=== PATIENT | female | born 1995 | race Caucasian/White ===

== ENCOUNTER 2016-11-17 04:13 | Emergency (ER) | payer SELFPAY ==
[2016-11-17 04:19] VITALS: BP 119/76; PULSE 100; RESP 16; TEMP 97.7; O2SAT 95
[2016-11-17] MEDS ORDERED: SERO400T PO (04:31)
[2016-11-17] MEDS ORDERED: LORA-474 PO (04:31)
[2016-11-17] MEDS ORDERED: BUPR150CR PO (04:31)
--- NOTE | 2016-11-17 04:42 | PD ---
HPI Chief Complaint: Injury Time Seen by Provider: 04:30 Travel History International Travel<30 days: No Contact w/Intl Traveler<30days: No Traveled to known affect area: No History of Present Illness HPI Patient is a 21-year-old female presenting to emergency Department for evaluation of right wrist pain. There was no defining injury or trauma. Patient states pain is been ongoing for 1 week. She has not taken anything over -the-counter to alleviate the pain. She denies any weakness, numbness or tingling in her hand. She has full range of motion but states is sore when she moves. She rates her pain a 4 out of 10. PFSH Past Medical History Medical History: Denies Significant Hx ?: Not Past Surgical History Surgical History: No Previous Surgery Social History Alcohol Use: No Tobacco Use: No Substance Use: No Allergies-Medications (Allergen,Severity, Reaction): Coded Allergies: lactose (Verified Allergy, Unknown, 11/17/16) Reported Meds & Prescriptions Reported Meds & Active Scripts Active Reported Wellbutrin SR 12 HR (Bupropion HCl) 150 Mg Tab 150 Mg PO Q12HR Ativan (Lorazepam) 1 Mg Tab 1 Mg PO DAILY PRN Seroquel (Quetiapine Fumarate) 400 Mg Tab 400 Mg PO HS Review of Systems Except as stated in HPI: all other systems reviewed are Neg Musculoskeletal: Positive: Myalgias, Arthralgias Physical Exam Narrative GENERAL: Well-developed, well-nourished, alert female. Resting comfortably in no acute distress. SKIN: Warm and dry. HEAD: Normocephalic. EYES: No scleral icterus. No injection or drainage. NECK: Supple, trachea midline. No JVD or lymphadenopathy. CARDIOVASCULAR: Regular rate and rhythm without murmurs, gallops, or rubs. RESPIRATORY: Breath sounds equal bilaterally. No accessory muscle use. GASTROINTESTINAL: Abdomen soft, non-tender, nondistended. MUSCULOSKELETAL: No cyanosis, or edema. 5 out of 5 muscle strength in bilateral upper extremities. 2+ radial pulses bilaterally. Full range of motion in right wrist and hand. He is noted. Nontender to palpation. BACK: Nontender without obvious deformity. No CVA tenderness. Data Data Last Documented VS Vital Signs Date Time Temp Pulse Resp B/P (MAP) Pulse Ox O2 Delivery O2 Flow Rate FiO2 11/17/16 04:19 97.7 100 16 119/76 (90) 95 Room Air MDM Medical Decision Making Medical Screen Exam Complete: Yes Emergency Medical Condition: No Interpretation(s) Vital Signs Date Time Temp Pulse Resp B/P (MAP) Pulse Ox O2 Delivery O2 Flow Rate FiO2 11/17/16 04:19 97.7 100 16 119/76 (90) 95 Room Air Differential Diagnosis Sprain versus strain versus carpal tunnel syndrome versus other Narrative Course Patient presented for evaluation of right wrist pain that started over one week ago. There was no injury or trauma. There is no obvious deformities and patient is neurovascularly intact. Patient has not trialed any over-the- counter anti-inflammatory or acetaminophen. Furthermore she has not had any other conservative management such as heat or ice. At this time patient was advised to obtain [id number] ibuprofen or acetaminophen, use as directed. She was encouraged to alternate heat and ice the affected area and continue range of motion exercises. A medical screening exam was performed: At the time of evaluation the presenting medical condition was determined not to be of an emergent nature. The patient was given the option of receiving additional care, but declined. Patient was given options for additional community resources from which to obtain care. The Patient Has Been advised to seek medical attention for their presenting complaint. The patient has been advised to return to the ER at any time if an emergent condition develops. Diagnosis Primary Impression: Encounter for medical screening examination Condition: Norma Phillips Nov 17, 2016 04:42
== END 2016-11-17 05:52 | disposition left against medical advice (07) ==
LOC: NEPD 04:13
DX: M25.531 Pain in right wrist (principal)
CPT/HCPCS: 99281

== ENCOUNTER 2017-03-22 03:10 | Emergency (ER) | payer MEDICAID ==
[~2017-03-22] VITALS: Ht 165.1 cm; Wt 63.5 kg
[~2017-03-22 03:10] MED LIST: BUPR150CR PO; LORA-474 PO; SERO400T PO
[2017-03-22 03:11] VITALS: BP 112/76; PULSE 118; RESP 20; TEMP 98.4; O2SAT 100
[2017-03-22 04:16] VITALS: O2SAT 99
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
[2017-03-22 04:32] LABS: AUTOMATED NEUTROPHIL # 4.7 TH/MM3 (1.8-7.7); BASOPHIL % 0.4 % (0.0-2.0); EOSINOPHIL # 0.1 TH/MM3 (0-0.4); EOSINOPHIL % 0.8 % (0.0-4.0); HEMOGLOBIN 12.5 GM/DL (11.6-15.3); LYMPH % 29.3 % (9.0-44.0); LYMPHOCYTE # 2.2 TH/MM3 (1.0-4.8); MEAN CELL VOLUME 95.4 FL (80.0-100.0); MEAN CORPUSCULAR HEMOGLOBIN 33.9 PG (27.0-34.0); MEAN CORPUSCULAR HGB CONC 35.6 % (32.0-36.0); MEAN PLATELET VOLUME 8.1 FL (7.0-11.0); MONO % 8.5 % (0.0-8.0); MONOCYTE # 0.6 TH/MM3 (0-0.9); PLATELET COUNT 228 TH/MM3 (150-450); RED BLOOD COUNT 3.67 MIL/MM3 (4.00-5.30); RED CELL DISTRIBUTION WIDTH 13.2 % (11.6-17.2); WHITE BLOOD COUNT 7.6 TH/MM3 (4.0-11.0)
--- NOTE | 2017-03-22 04:39 | RADRPT ---
EXAM DATE/TIME: 03/22/2017 04:22 [facility] COMPARISON: No previous studies available for comparison. INDICATIONS : Chest pain. MEDICAL HISTORY : None. SURGICAL HISTORY : None. ENCOUNTER: Initial ACUITY: 1 day PAIN SCORE: 4/10 LOCATION: Bilateral chest FINDINGS: Portable AP view of the chest demonstrates a normal-sized cardiac silhouette. No effusion, consolidat ion, or pneumothorax is visualized. The bones and soft tissues demonstrate no acute abnormality. CONCLUSION: No acute cardiopulmonary abnormality is identified. Alexis Villatoro MD on March 22, 2017 at 4:37 Board Certified Radiologist. This report was verified electronically.
[2017-03-22 04:54] LABS: ALBUMIN 3.9 GM/DL (3.4-5.0); ALT (GPT) 16 U/L (9-42); AST (GOT) 20 U/L (16-38); BLOOD UREA NITROGEN 14 MG/DL (7-18); CALCIUM 8.6 MG/DL (8.5-10.1); CHLORIDE 106 MEQ/L (98-107); CREATININE 0.81 MG/DL (0.50-1.00); GLOMERULAR FILTRATION RATE 90 ML/MIN (>89); GLUCOSE,RANDOM 102 MG/DL (74-106); SODIUM (NA) 140 MEQ/L (136-145)
[2017-03-22 04:58] LABS: ALKALINE PHOSPHATASE 69 U/L (45-117); TOTAL BILIRUBIN ADULT 0.4 MG/DL (0.2-1.0); TROPONIN I LESS THAN 0.02 NG/ML (0.02-0.05)
--- NOTE | 2017-03-22 10:59 | EKG ---
Date Performed: 03/22/2017 Time Performed: 04:07:14 PTAGE: 21 years EKG: Sinus rhythm NORMAL ECG NO PREVIOUS TRACING DOCTOR: Rivera Cheung Interpretating Date/Time 03/22/2017 10:56:36
== END 2017-03-22 06:41 | disposition home or self-care (01) ==
LOC: NEPC 03:10
DX: R07.89 Other chest pain (principal); F31.9 Bipolar disorder, unspecified; F41.9 Anxiety disorder, unspecified; Z79.899 Other long term (current) drug therapy
CPT/HCPCS: 71045; 80053; 80307; 82550; 82552; 84484; 85025; 93005; 99285

== ENCOUNTER 2017-04-07 08:42 | Emergency (ER) | payer MEDICAID ==
[~2017-04-07] VITALS: Ht 165.1 cm; Wt 57.5 kg
[2017-04-07 08:54] VITALS: BP 116/66; PULSE 180; RESP 20; TEMP 98.7; O2SAT 99
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
[2017-04-07 10:25] LABS: AUTOMATED NEUTROPHIL # 5.6 TH/MM3 (1.8-7.7); BASOPHIL % 0.4 % (0.0-2.0); EOSINOPHIL % 0.4 % (0.0-4.0); HEMATOCRIT 35.1 % (35.0-46.0); HEMOGLOBIN 12.6 GM/DL (11.6-15.3); LYMPH % 15.3 % (9.0-44.0); LYMPHOCYTE # 1.1 TH/MM3 (1.0-4.8); MEAN CELL VOLUME 95.5 FL (80.0-100.0); MEAN CORPUSCULAR HEMOGLOBIN 34.2 PG (27.0-34.0); MEAN CORPUSCULAR HGB CONC 35.9 % (32.0-36.0); MEAN PLATELET VOLUME 7.8 FL (7.0-11.0); MONO % 7.8 % (0.0-8.0); MONOCYTE # 0.6 TH/MM3 (0-0.9); NEUT % 76.1 % (16.0-70.0); PLATELET COUNT 237 TH/MM3 (150-450); RED BLOOD COUNT 3.68 MIL/MM3 (4.00-5.30); RED CELL DISTRIBUTION WIDTH 12.8 % (11.6-17.2); WHITE BLOOD COUNT 7.3 TH/MM3 (4.0-11.0)
[2017-04-07 10:38] LABS: BACTERIA, URINE RARE /hpf; BILIRUBIN, URINE NEG (NEG); BLOOD, URINE LARGE (NEG); GLUCOSE,URINE NEG (NEG); KETONE, URINE NEG (NEG); NITRITE,URINE NEG (NEG); PH, URINE 7.5 (5.0-8.5); SQUAMOUS EPITHELIAL CELL URINE 11 /hpf (0-5); URINE COLOR LIGHT-YELLOW (YELLW/STRAW); URINE LEUKOCYTE ESTERASE TRACE (NEG)
[2017-04-07 10:52] LABS: ALBUMIN 3.5 GM/DL (3.4-5.0); AST (GOT) 14 U/L (16-38); BICARBONATE 25.6 MEQ/L (21.0-32.0); BLOOD UREA NITROGEN 8 MG/DL (7-18); CALCIUM 7.9 MG/DL (8.5-10.1); CHLORIDE 107 MEQ/L (98-107); CREATININE 0.51 MG/DL (0.50-1.00); GLOMERULAR FILTRATION RATE 154 ML/MIN (>89); GLUCOSE,RANDOM 76 MG/DL (74-106); SODIUM (NA) 139 MEQ/L (136-145)
[2017-04-07 11:10] LABS: ALKALINE PHOSPHATASE 59 U/L (45-117); ALT (GPT) 14 U/L (9-42); TOTAL BILIRUBIN ADULT 0.4 MG/DL (0.2-1.0); TOTAL PROTEIN 6.8 GM/DL (6.4-8.2)
--- NOTE | 2017-04-07 11:49 | RADRPT ---
EXAM DATE/TIME: 04/07/2017 09:47 [facility] COMPARISON: No previous studies available for comparison. INDICATIONS : [place]. LAB(S): Beta-hC MEDICAL HISTORY : Bipolar. SURGICAL HISTORY : None. ENCOUNTER: Initial ACUITY: 2 days PAIN SCORE: 3/10 LOCATION: Bilateral pelvis MEASUREMENTS: UTERUS: 7.8 x 6.0 x 4.3 cm ENDOMETRIAL STRIPE: 15 mm RIGHT OVARY: 3.1 x 2.2 x 1.3 cm LEFT OVARY: 3.2 x 2.8 x 1.7 cm FREE FLUID: Yes cul de sac CROWN RUMP LENGTH: 0.6 = 6 WKS 3 DAYS FHR: 159 BPM FINDINGS: UTERUS: A single intrauterine gestation observed. Age by crown-rump length is 6 weeks 4 days. Well-formed yol k sac noted. heart rate 159 beats per minute. There is an area of decreased echogenicity consis tent with a subchorionic hemorrhage. This measures 2.7 cm in greatest length. RIGHT OVARY: Ovary contains no mass or significant cystic lesion. LEFT OVARY: Ovary contains no mass or significant cystic lesion. MISCELLANEOUS: Trace amount of free fluid within the cul-de-sac. CONCLUSION: 1. Solitary intrauterine gestation. Age by crown-rump length 6 weeks 4 days. heart rate 139 tabitha ts per minute. 2. Subchorionic hemorrhage. 3. Trace amount of free fluid within the cul-de-sac. Arben Madrigal Jr., MD on April 07, 2017 at 11:43 Board Certified Radiologist. This report was verified electronically.
== END 2017-04-07 13:00 | disposition home or self-care (01) ==
LOC: NEPD 08:42
DX: O20.0 Threatened abortion (principal); O99.341 Other mental disorders complicating pregnancy, first trimester; F31.9 Bipolar disorder, unspecified; F41.9 Anxiety disorder, unspecified; F32.9 Major depressive disorder, single episode, unspecified
CPT/HCPCS: 76700; 76817; 80053; 81001; 84702; 84703; 85025; 86901; 99284

== ENCOUNTER → 2017-05-12 | Day surgery (SDC) | payer MEDICAID ==
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
[~2017-05-12] VITALS: Ht 165.1 cm; Wt 59.7 kg
[~2017-05-12] MED LIST changes: +*MEPERIDINE 25 MG INJ VIAL PERIprocedural Use ONLY ONE; +*ONDANSETRON 4 MG VIAL PERIprocedural Use ONLY ONE; -BUPR150CR PO; +CHLORHEXIDINE GLUCONATE 2 % 1 PACK (2 CLOTHS) TOPICAL PRN; +DO NOT ADM ANY ANTICOAGULANT DRUGS PRN; +ESTROGENS CONJUGATED VAG CREA 15 APPL/30 GM TUBE ONE; +KETOROLAC TROMETHAMINE 60 MG/2 ML (IM) VIAL IM PRN; +LACTATED RINGER'S 1000 ML IV PRN; +LIDOCAINE HCL 1% PF 5 ML SYRINGE OTHER ONE; -LORA-474 PO; +MEPERIDINE HCL 50 MG/ML VIAL IM PRN; +METHYLERGONOVINE MALEATE 0.2 MG/ML VIAL ONE; +METOPROLOL TARTRATE 25 MG TAB PO PRN; +MIDAZOLAM HCL 2 MG/2 ML VIAL ONE; +ONDANSETRON INJ 8 MG in SODIUM CHLORIDE 0.9% INJ 50 ML IV PRN; +OXYTOCIN 10 UNIT/ML AMP ONE; +POVIDONE IODINE 5% (ANTISEPSIS KIT) 4 APPLICATIONS EACH NARE PRN; +PROPOFOL 200 MG/20 ML AMP IV ONE; -SERO400T PO; +SODIUM CHLORID 0.9% 500 ML IV PRN; +ceFAZolin INJ 1,000 MG VIAL IV ONE; +ceFAZolin INJ 1,000 MG VIAL ONE; +oxyCODONE/ACETAMINOPHEN 5 MG/325 MG TAB PO PRN
--- NOTE | 2017-05-12 09:04 | MP ---
cc: Marli Myrick MD DATE OF OPERATION: 05/12/2017 PREOPERATIVE DIAGNOSIS: Missed at approximately 12 weeks. POSTOPERATIVE DIAGNOSIS: Missed at approximately 12 weeks. PROCEDURE PERFORMED: Suction and sharp curettage with placement of the ParaGard intrauterine device. ANESTHESIA: General. SURGEON: MD Ramez HUMAN RESOURCE ADVISER: Odalys Fonseca. FINDINGS: Examination under anesthesia revealed about a 10-12 week uterus, soft and boggy, but easily dilated and the products of conception were obtained through a 5-10 curved curette. A sharp curette was used to assure reasonable removal of all tissue and the IUD was placed at 11 cm without difficulty. Because of the size of her uterus, blood loss was 300 mL, but there was no evidence of inappropriate bleeding at the end of the case. Sponge, instrument and needle count were correct. She did tolerate the procedure well and will go to the recovery room in stable condition. It is known that her Rh type is Rh negative and she is therefore going to receive RhoGAM. She will be discharged to followup in my office in a week. Marli Myrick MD PPC/SB , 08:50 AM , 09:04 AM
[2017-05-12 09:50] VITALS: BP 101/55; PULSE 76; RESP 18; TEMP 97.7; O2SAT 100
--- NOTE | 2017-05-12 11:11 | PD.OP ---
Operative Report Date of Surgery: May 12, 2017 Preoperative Diagnosis: missed Postoperative Diagnosis: same Procedure: dilation with suction and sharp curettage Placement of paragard Anesthesia: GET Surgeon: Marli Myrick Blanket Maker(s): Rakesh Operation and Findings: Marli Patrick MD May 12, 2017 11:11
[2017-05-12 11:20] VITALS: BP 108/61; PULSE 80; RESP 16; TEMP 98.1; O2SAT 100
== END | disposition home or self-care (01) ==
LOC: HSDC 05:23
PROVIDERS: ATTEND Obstetrics & Gynecology
DX: O02.1 Missed abortion (principal); Z3A.12 12 weeks gestation of pregnancy; Z59.0 Homelessness
CPT/HCPCS: 01965; 58300; 59820; 86900; 86901; 88305; 90384; 96372; J0690; J2175; J2210; J2250; J2405; J2590; J3010; J7120; J2790